=== PATIENT | female | born 2000 | race Caucasian/White ===

== ENCOUNTER 2018-02-25 10:06 | Emergency (ER) | payer OTHER ==
--- NOTE | 2018-02-25 10:57 | EDM.PDOC ---
ED HPI GENERAL MEDICAL PROBLEM - General Chief Complaint: General Stated Complaint: MEDICAL [facility] Time Seen by Provider: 02/25/18 10:43 Source of Information: Reports: Patient, Family, RN Notes Reviewed History Limitations: Reports: No Limitations - History of Present Illness INITIAL COMMENTS - FREE TEXT/NARRATIVE: 17-year-old female presents to the emergency department via EMS services complaint of seizure, she is on a known seizure medication of Keppra admits that she is below the therapeutic range she has missed a dose and was up late last night so was a little sleep deprived. Her reports of EMS crew she was postictal upon arrival at this time she feels close to her normal self Neck Pain Score (Numeric/FACES): 3 - Related Data Allergies Allergy/AdvReac Type Severity Reaction Status Date / Time Penicillins Allergy Rash Verified 02/25/18 10:23 Home Meds: Home Meds *Zoloft 1 tab PO DAILY 02/25/18 [History] levETIRAcetam [Keppra] 500 mg PO BID 02/25/18 [History] Past Medical History HEENT History: Reports: Allergic Rhinitis Gastrointestinal History: Reports: Irritable Bowel Syndrome Musculoskeletal History: Reports: Fracture Neurological History: Reports: Seizure Psychiatric History: Reports: Depression Hematologic History: Reports: Anemia Social & Family History - Tobacco Use Smoking Status *Q: Never Smoker - Caffeine Use Caffeine Use: Reports: None - Recreational Drug Use Recreational Drug Use: No ED ROS GENERAL - Review of Systems Review Of Systems: See Below Constitutional: Reports: No Symptoms Respiratory: Reports: No Symptoms Cardiovascular: Reports: No Symptoms GI/Abdominal: Reports: No Symptoms Musculoskeletal: Reports: No Symptoms Skin: Reports: No Symptoms Neurological: Reports: Seizure ED EXAM, GENERAL - Physical Exam Exam: See Below Exam Limited By: No Limitations General Appearance: Alert, WD/WN, No Apparent Distress Eye Exam: Bilateral Eye: EOMI, Normal Inspection, PERRL Ears: Normal External Exam, Normal Canal, Hearing Grossly Normal, Normal TMs ( Cerumen obscures the tympanic membrane on the left) Nose: Normal Inspection, Normal Mucosa, No Blood Throat/Mouth: Normal Inspection, Normal Lips, Normal Teeth, Normal Gums, Normal Oropharynx, Normal Voice, No Airway Compromise Head: Atraumatic, Normocephalic Neck: Normal Inspection, Supple, Non-Tender, Full Range of Motion Respiratory/Chest: No Respiratory Distress, Lungs Clear, Normal Breath Sounds, No Accessory Muscle Use Cardiovascular: Regular Rate, Rhythm, No Murmur GI/Abdominal: Soft, Non-Tender Course - Vital Signs Last Recorded V/S: Last Vital Signs Temp 99.0 F 02/25/18 10:28 Pulse 78 02/25/18 10:28 Resp 16 02/25/18 10:28 BP 115/65 02/25/18 10:28 Pulse Ox 97 02/25/18 10:28 - Orders/Labs/Meds Orders: Active Orders 24 hr Category Date Time Status levETIRAcetam [Keppra] Med 02/25/18 11:39 Stat 250 mg PO NOW STA Labs: Laboratory Tests 02/25/18 02/25/18 Range/Units 10:54 10:54 WBC 7.4 (4.5-11.0) K/uL RBC 3.79 (3.30-5.50) M/uL Hgb 11.5 L (12.0-15.0) g/dL Hct 34.8 L (36.0-48.0) % MCV 92 (80-98) fL MCH 30 (27-31) pg MCHC 33 (32-36) % Plt Count 348 (150-400) K/uL Neut % (Auto) 61 (36-66) % Lymph % (Auto) 28 (24-44) % [place] % (Auto) 9 H (2-6) % Eos % (Auto) 2 (2-4) % Baso % (Auto) 1 (0-1) % Sodium 141 (140-148) mmol/L Potassium 4.0 (3.6-5.2) mmol/L Chloride 104 (100-108) mmol/L Carbon Dioxide 29 (21-32) mmol/L Anion Gap 7.7 (5.0-14.0) mmol/L BUN 8 (7-18) mg/dL Creatinine 0.7 (0.6-1.0) mg/dL Est Cr Clr Drug Dosing 124.96 mL/min Estimated GFR (MDRD) > 60 (>60) Glucose 90 (74-106) mg/dL Calcium 9.0 (8.5-10.1) mg/dL Meds: Medications Discontinued Medications Generic Name Dose Route Start Last Admin Trade Name Freq PRN Reason Stop Dose Admin Ketorolac Tromethamine 30 mg 02/25/18 11:08 02/25/18 11:16 Toradol IVPUSH 02/25/18 11:09 30 mg ONETIME ONE Administration Departure - Departure Time of Disposition: 11:41 Disposition: Home, Self-Care 01 Condition: Good Clinical Impression: Seizure - Discharge Information Referrals: PCP,None [Primary Care Provider] - Forms: ED Department Discharge Additional Instructions: Continue with your regular medications, please follow-up with your neurologist upon return home, call return to the emergency department worsening of symptoms - My Orders Last 24 Hours: My Active Orders 02/25/18 11:39 levETIRAcetam [Keppra] 250 mg PO NOW STA - Assessment/Plan Last 24 Hours: My Active Orders 02/25/18 11:39 levETIRAcetam [Keppra] 250 mg PO NOW STA Plan: Assessment Acuity = acute Site and laterality = seizure disorder Etiology = probably secondary to sleep deprivation and subtherapeutic level of Keppra Manifestations = none Location of injury = Home Lab values = CBC, BMP unremarkable Plan She was provided 250 mg dosing Keppra now then she will follow-up with her neurologist upon return home for review of medications This note was dictated using [employer] voice recognition software please call with any questions on syntax or grammar.
[2018-02-25] MEDS: Ketorolac 30 MG/ML SDV IVPUSH ONE (11:16)
[2018-02-25] MEDS: levETIRAcetam 250 MG Tab PO STA (12:03)
== END 2018-02-25 12:15 | disposition home or self-care (01) ==
LOC: JP.ED 10:06
DX: G40.909 Epilepsy, unspecified, not intractable, without status epilepticus (principal); F32.9 Major depressive disorder, single episode, unspecified; Z88.0 Allergy status to penicillin; Z79.899 Other long term (current) drug therapy
CPT/HCPCS: 36415; 80048; 85025; 96374; 99284; A9270; J1885